=== PATIENT | female | born 1990 | race Caucasian/White ===

== ENCOUNTER 2022-04-09 18:42 | Emergency (ER) | payer OTHER, SELFPAY ==
[2022-04-09 18:43] VITALS: BP 134/70; PULSE 121; RESP 17; TEMP 36.6; O2SAT 99; BMI 26.5
--- NOTE | 2022-04-09 18:51 | RAD_ITS ---
STUDY: X-RAY - RIGHT FOOT CLINICAL: Female, 31 years old. SWELLING TECHNIQUE: 6 view(s) of the foot. COMPARISON: None. FINDINGS: Normal talus, calcaneus, and tarsal bones. Postsurgical changes status post open reduction internal fixation of distal tibial fracture Normal visualized subtalar, talonavicular, calcaneocuboid, tarsal and tarsometatarsal articulations. Normal metatarsi. Normal metatarsophalangeal joint of the great toe. Normal tibial and fibular sesamoid bones. Normal interphalangeal joint of the great toe. Normal phalanges of the great toe. Normal second through fifth metatarsophalangeal joints. Normal interphalangeal joints and phalanges of the lesser toes. Diffuse soft tissue swelling is noted. RAD/Foot min 3 Views IMPRESSION: Diffuse soft tissue swelling without evidence for acute fracture or dislocation Electronically Signed: Partha Donnelly MD at 19:36 EDT ,
--- NOTE | 2022-04-09 19:37 | CM.ED ---
GÉNESIS Note GÉNESIS reviewed ED charting and it was noted that patient has no PCP. GÉNESIS met with patient and her sister. Patient resides in [place] and has PCP in [place]. Patient is up in this area visiting her sister. Sister said she has MS so if she did not have a PCP she would be screwed. No other issues or concerns voiced. Sw remains available if needs arise. Jenni CARROLL
--- NOTE | 2022-04-09 20:00 | RAD_ITS ---
STUDY: X-RAY - RIGHT ANKLE REASON FOR EXAM: Female, 31 years old. injury TECHNIQUE: 3 view(s) of the ankle. COMPARISON: None. FINDINGS: Old healed fracture of the distal tibial shaft status post ORIF with indwelling orthopedic hardware . No acute fracture identified at this time Normal visualized distal fibula. Normal medial and lateral malleoli. Normal tibiotalar articulation and ankle mortise. Normal visualized talus and calcaneus. The visualized subtalar, talonavicular, calcaneocuboid and tarsal articulations are normal. Diffuse bimalleolar soft tissue swelling. RAD/Ankle min 3 Views IMPRESSION: Bimalleolar sprain. No acute fracture or dislocation Electronically Signed: Partha Donnelly MD at 20:32 EDT ,
--- NOTE | 2022-04-09 20:31 | ED.RN ---
PT OBSERVED BEING WHEELED OUT OF DEPARTMENT BY FRIEND/FAMILY
--- NOTE | 2022-04-09 20:39 | EDS_ITS ---
HPI History of Present Illness Chief Complaint: Lower Extremity Injury Informant: patient Narrative Narrative: 31-year-old female states that 2 days ago she tripped [place]. Causing an inversion injury to her foot. She notes swelling and ecchymosis. She notes swe lling over the lateral malleolus of her ankle. She denies any other injuries. She put herself in a Velcro boot like orthosis she states she has a walker and crutches [facility] Medical History Multiple sclerosis Home Medications calcium carbonate 600 mg-vitamin D3 10 mcg (400 unit) tablet (Calcium 600 + D(3)) 1,000 ea PO DAILY 01/11/14 [History Last Taken Unknown] cyanocobalamin (vitamin B-12) 500 mcg tablet 1,000 mcg PO DAILY@0800 01/11/14 [History Last Taken Unknown] natalizumab 300 mg/15 mL intravenous solution (Tysabri) 300 mg IV .[id number] 01/11/14 [History Last Taken Unknown] buspirone 30 mg tablet 40 mg PO BID 04/09/22 [History Last Taken Unknown] pregabalin 100 mg capsule (Lyrica) 100 mg PO TID 04/09/22 [History Last Taken Unknown] Allergy/AdvReac Type Severity Reaction Status Date / Time No Known Allergies Allergy Verified 04/09/22 18:46 Social History (Updated 04/09/22 @ 20:[address] Raheem Wan DO) Smoking Status: Never smoker substance use type: does not use ROS ROS ED Constitutional Constitutional ED: Denies chills or weight loss Eyes Eyes: Denies change in vision or diplopia ENT ENT ED: Denies ear pain, rhinorrhea or sore throat Cardiovascular Cardiovascular: Denies chest pain, orthopnea, palpitations or racing heartbeat Respiratory/Chest Respiratory/Chest: Denies cough, dyspnea or orthopnea Gastrointestinal Gastrointestinal: Denies abdominal pain, diarrhea, nausea or vomiting Genitourinary Genitourinary ED: Denies dysuria, hematuria or urinary frequency Musculoskeletal Musculoskeletal: Reports other Details: See history of present illness ; Denies arthralgias or myalgias Integumentary Denies abscess or rash Neurologic Neurologic: Denies headache(s) or weakness Psychiatric Psychiatric: Denies anxiety, depression, suicidal ideation or suicidal thoughts Endocrine Endocrinology: Denies polydipsia, polyphagia or polyuria Allergic/Immunologic Allergic/Immunologic ED: Denies mouth swelling, tongue swelling or urticaria EXAM Physical Exam Const Vital Signs: 04/09/22 18:43 Temperature 97.9 F Temperature Source Temporal Pulse Rate 121 H Respiratory Rate 17 Blood Pressure 134/70 H Blood Pressure Mean 91 Pulse Ox 99 Oxygen Delivery Method Room Air Positive well nourished and well developed General Appearance ED: well developed HEENT Reports normocephalic, head/scalp atraumatic and moist mucous membranes Eyes PERRL and EOMs intact bilaterally Neck no lymphadenopathy, supple and no JVD Resp normal respiratory effort and clear to auscultation bilaterally Cardio regular rate, regular rhythm and no murmurs GI normal to inspection, nondistended, normoactive bowel sounds and non-tender Palpation: soft Back/Spine no CVA tenderness and normal ROM Extremity Extremity Narrative: There is swelling and ecchymosis of the dorsum of the plantar aspect of the right foot. There are some mild tenderness at the fifth metatarsal end of the lateral malleolus. There is no fibular head pain or tibial shaft pain. Mynor rovascular intact. Neuro oriented x3 and CN's II-XII intact bilaterally Sensorium / Orientation: alert Motor Exam: strength 5/5 throughout Psych mental status grossly normal Mood & Affect: Negative for depressed or tearful Skin no rashes or lesions noted and no wounds MDM MDM MDM Narrative Medical decision making narrative: My interpretation of the plain films of the foot which were ordered through nursing protocol is no acute fracture or dislocation. Because of the tenderness over the lateral malleolus a ankle film was obtained. This my interpretation is also negative for fracture. My back to tell the patient her results and the patient was noted to be sitting on the bed her friend is having music playing on her phone that I can hear 4 doors down with the doors closed. They seem to be wrestling trying to weigh her on the bed. I advised them that they could try to calm down a little bit that her foot must be feeling pretty good if she is able to do this. They state that they have been here long enough (1 hour 46 minutes) and are leaving. Radiography Diagnostic Testing: Clinical Impression(s) from Imaging Studies Foot X-Ray 04/09/22 18:51 IMPRESSION: Diffuse soft tissue swelling without evidence for acute fracture or dislocation Electronically Signed: Partha Donnelly MD at 19:36 EDT Reading Location ID and State: [facility] / [place] , Service support , Discharge Plan Triage Chief Complaint: Lower Extremity Injury ED Provider: Raheem Wan Dx/Rx/DC Orders Clinical Impression: Right foot sprain, Acute pain of right foot Prescriptions: No Action cyanocobalamin (vitamin B-12) 500 MCG tablet 1,000 mcg PO DAILY@0800 Tysabri 300 MG/15 ML solution 300 mg IV .[id number] calcium carbonate-vitamin D3 [Calcium 600 + D(3)] 1 EACH tablet 1,000 ea PO DAILY buspirone 30 mg Tablet 40 mg PO BID pregabalin [Lyrica] 100 mg Capsule 100 mg PO TID Primary Care Provider: Care Physician,No Primary Referrals: Care Physician,No Primary [Primary Care Provider] - Disposition Disposition: Elopement Discharge Date/Time: 04/09/22 20:32
== END 2022-04-09 20:32 | disposition left against medical advice (07) ==
PROVIDERS: Emergency Provider Emergency Medicine; Visit Provider Emergency Medicine
DX: S93.601A Unspecified sprain of right foot, initial encounter (principal); G35 Multiple sclerosis; W18.40XA Slipping, tripping and stumbling without falling, unspecified, initial encounter; X50.1XXA Overexertion from prolonged static or awkward postures, initial encounter; Z79.899 Other long term (current) drug therapy
CPT/HCPCS: 73610; 73630; 99281; 99282